=== PATIENT | female | born 2000 | race Caucasian/White ===

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

== ENCOUNTER 2022-02-24 12:14 | Emergency (ER) | payer MEDICAID ==
[~2022-02-24] VITALS: Ht 157.5 cm; Wt 45.0 kg
[2022-02-24 12:34] VITALS: TEMP 97.8
[2022-02-24 13:09] LABS: COLLECTION METHOD CLEAN CATCH
[2022-02-24 13:16] LABS: BASO # 0.1 K/mm3 (0.0-0.2); BASO % 0.5 % (0.0-2.0); EOS # 0.1 K/mm3 (0.0-0.7); EOS % 0.6 % (0.0-4.0); GRAN # 8.2 K/mm3 (1.4-6.5); GRAN % 76.1 % (42.2-75.2); HEMATOCRIT 42.7 % (35.0-45.0); HEMOGLOBIN 14.7 g/dl (12.0-15.0); LYMPH # 1.9 K/mm3 (1.2-3.4); LYMPH % 17.6 % (20.0-51.0); MEAN CELL VOLUME 86 fl (80.0-95.0); MEAN CORPUSCULAR HEMOGLOBIN 30 pg (26-32); MEAN CORPUSCULAR HGB CONC 34 g/dl (33.0-37.0); MEAN PLATELET VOLUME 10.7 fl (7.4-10.4); MONO # 0.5 K/mm3 (0.1-0.6); MONO % 4.9 % (1.7-9.3); PLATELET COUNT 219 K/mm3 (130-400); RED BLOOD COUNT 4.98 M/mm3 (4.10-5.30); REDCELL DISTRIBUTION WIDTH-CV 11.8 % (11.5-14.5)
[2022-02-24 13:21] LABS: MUCOUS Present (NOT PRESENT); PH 5 (5-8); URINE APPEARANCE Hazy (CLEAR/HAZY); URINE BACTERIA Rare /hpf (NONE SEEN); URINE BILIRUBIN Negative (NEGATIVE); URINE BLOOD 3+ (NEGATIVE); URINE COLOR Yellow (YELLOW); URINE GLUCOSE Negative (NEGATIVE); URINE KETONE 1+ (NEGATIVE); URINE LEUKOCYTE ESTERASE Negative (NEGATIVE); URINE NITRATE Negative (NEGATIVE); URINE PROTEIN(semi-quant) 1+ (NEGATIVE); URINE RBC >50 /hpf (0-2); URINE UROBILINOGEN Negative (NEGATIVE)
[2022-02-24 13:30] LABS: ALBUMIN 4.4 gm/dL (3.5-5.0); BILIRUBIN,TOTAL 0.9 mg/dL (0.2-1.2); C-REACTIVE PROTEIN 0.08 mg/dL (0.00-0.50); CALCIUM 9.1 mg/dL (8.4-10.2); CREATININE, serum 0.71 mg/dL (0.57-1.11); POTASSIUM 3.4 mmol/L (3.5-4.5); TOTAL PROTEIN 7.6 gm/dL (6.2-8.1)
[2022-02-24] MEDS ORDERED: ZOFRAN ODT4 MG PO (15:22)
[2022-02-24 15:37] VITALS: BP 111/75; PULSE 71
== END 2022-02-24 15:38 | disposition home or self-care (01) ==
LOC: COL.ER 12:14
PROVIDERS: Physician Assistant
DX: R10.13 Epigastric pain (principal); R10.31 Right lower quadrant pain; R11.2 Nausea with vomiting, unspecified; K63.89 Other specified diseases of intestine
CPT/HCPCS: J1885; J2405; J7030; Q9967

== ENCOUNTER 2022-03-24 15:36 | Emergency (ER) | payer MEDICAID ==
[~2022-03-24] VITALS: Ht 157.5 cm; Wt 45.5 kg
[~2022-03-24 15:36] MED LIST: ZOFRAN ODT4 MG PO
[2022-03-24 15:49] VITALS: TEMP 98
[2022-03-24 16:17] VITALS: BP 97/68; PULSE 65
== END 2022-03-24 17:35 | disposition home or self-care (01) ==
LOC: COL.ER 15:36
DX: T78.3XXA Angioneurotic edema, initial encounter (principal)
CPT/HCPCS: J1200